=== PATIENT | male | born 1990 | race Two or more races ===

== ENCOUNTER → 2025-05-26 | Outpatient (CLI) | payer BC ==
[2025-05-26 13:39] LABS: Hematocrit 43.5 % (41.0-53.0); Hemoglobin 14.7 g/dL (13.5-17.5); Mean Corpuscular Hemoglobin 28.9 pg (28.0-32.0); Mean Corpuscular Volume 85.6 fL (80.0-100.0); Nucleated Red Blood Cells % 0.0 %
[2025-05-26 14:08] LABS: Urine Protein, UAD Negative (Negative)
[2025-05-26 14:14] LABS: Alanine Aminotransferase 30 U/L (7-40); Alkaline Phosphatase 94 U/L (46-116)
[2025-05-26 14:15] LABS: Anion Gap 8 (5-15); BUN/Creatinine Ratio 12.2 (10.0-20.0); Bilirubin, Total 0.5 mg/dL (0.2-1.0); Blood Urea Nitrogen 12 mg/dL (9-23); Calcium 9.7 mg/dL (8.7-10.4); Carbon Dioxide 27 mmol/L (20-31); Chloride 102 mmol/L (98-107); Glucose 99 mg/dL (74-106); Potassium 4.4 mmol/L (3.5-5.1); Sodium 137 mmol/L (136-145); Total Protein 7.2 g/dL (5.7-8.2)
[2025-05-26 14:16] LABS: Albumin 4.9 g/dL (3.2-4.8)
[2025-05-26 14:36] LABS: Cholesterol 242 mg/dL (< 200); HDL Cholesterol 38 mg/dL (40-59); Triglycerides 333 mg/dL (< 150)
== END | disposition home or self-care (01) ==
LOC: LAB 13:22
PROVIDERS: ATTEND Internal Medicine
DX: R73.9 Hyperglycemia, unspecified (principal)
CPT/HCPCS: 36415; 80053; 80061; 81001; 82043; 82306; 83036; 85025